=== PATIENT | male | born 1995 ===

== ENCOUNTER 2018-03-03 08:50 | Day surgery (SDC) | payer BC ==
[2018-02-27 10:01] VITALS: BMI 24.3
[2018-03-03 10:01] VITALS: RESP 18
--- NOTE | 2018-03-03 10:54 | CP.SDSHP ---
Same Day Surgery H & P - History Proposed Procedure: open right inguinal hernia repair with mesh Pre-Op Diagnosis: right inguinal hernia - Previous Medical/Surgical History Previous Surgical History: L patella surgery - Allergies Allergies: Allergies No Known Allergies Allergy (Verified 03/03/18 09:31) - Physical Exam General Appearance: NAD, well Vital Signs: Vital Signs 03/03/18 03/03/18 09:59 10:05 Temperature 98.1 F Pulse Rate 55 L 55 L Respiratory 18 Rate Blood Pressure 108/59 L O2 Sat by Pulse 99 Oximetry Mental Status: Alert & Oriented x3 Neuro: WNL Heart: WNL Lungs: WNL GI: WNL - {Optional Preform as Required} : Other (R inguinal hernia) - Impression Impression: 22 y/o M w/ inguinal hernia Pt. Evaluated Today:Candidate for Anesthesia & Procedure: Yes - Date & Time Date: 03/03/18 Time: 10:54 Short Stay Discharge - Short Stay Discharge Admitting Diagnosis/Reason for Visit: K40.9 Disposition: HOME/ ROUTINE Referrals: Greg Pacheco MD [Primary Care Provider] - Instructions: Hernia Repair (DC)
[2018-03-03] MEDS ORDERED: Propofol 10 mg/ml Inj (20 ML) ONE (11:17)
[2018-03-03] MEDS ORDERED: Rocuronium 10 mg/ml (5 ml) ONE (11:17)
[2018-03-03] MEDS ORDERED: Midazolam 2 MG/2 ML VIAL ONE (11:17)
[2018-03-03] MEDS ORDERED: Succinylcholine 200 mg/10 ml Inj IV ONE (11:18)
[2018-03-03] MEDS ORDERED: Lactated Ringer's 1,000 ML IV ONE ×2 (12:13→12:14)
[2018-03-03] MEDS ORDERED: Neostigmine 1:1000 (1 mg/ml) Inj ONE (13:06)
[2018-03-03] MEDS ORDERED: Oxycodone/Acetaminophen 5/325 mg Tab PO PRN ×2 (13:29)
--- NOTE | 2018-03-03 13:29 | PCM.SURG1 ---
Surgeon's Initial Post Op Note - Surgeon's Notes Surgeon: Dr. Luis Patient Access Registrar: Dr. Navas PGY4, Dr. Huynh PGY3 Type of Anesthesia: General Endo Pre-Operative Diagnosis: right inguinal hernia Operative Findings: see dictation Post-Operative Diagnosis: same Operation Performed: open right inguinal hernia repair with mesh Specimen/Specimens Removed: hernia sac, cord lipoma Estimated Blood Loss: EBL {In ML}: 10 Drains Used: No Drains Post-Op Condition: Good Date of Surgery/Procedure: 03/03/18 Time of Surgery/Procedure: 13:29
[2018-03-03] MEDS ORDERED: HYDROmorphone 0.5 mg/0.5 ml ISec IVP PRN (13:32)
[2018-03-03] MEDS ORDERED: Lactated Ringer's 1,000 ML IV SCH (13:45)
[2018-03-03 16:18] VITALS: O2SAT 100
[2018-03-03 17:32] VITALS: BP 120/70; PULSE 74; TEMP 98.1
--- NOTE | 2018-03-04 23:45 | OP ---
Copied To: Sumi Luis MD Attending MD: Sumi Luis MD PROCEDURE DATE: 03/03/2018 SURGEON: Sumi Luis MD SEISMOGRAPHER: Jacque Huynh DO, and Korina Navas DO. ANESTHESIA: General. ANESTHESIA ADMINISTERED BY: Dr. Baig. PREOPERATIVE DIAGNOSIS: Right inguinal hernia. POSTOPERATIVE DIAGNOSIS: Right inguinal hernia. PROCEDURE: Right inguinal hernia repair with mesh. DESCRIPTION OF OPERATION: With the patient in the supine position under adequate general anesthesia, the right groin was prepped and draped in the usual sterile manner. The area was noted to be soft, bulging in the right groin extending to the area of the pubic tubercle, and a transverse incision was made in the right upper groin crease, taken down through the subcutaneous tissue. The external oblique layer was identified, and fatty protrusion was noted through the external inguinal ring. The external oblique aponeurosis was incised and then opened from the internal inguinal ring to the external inguinal ring. The spermatic cord was identified and dissected as it passed over the pubic tubercle. The spermatic cord was fatty with no definite direct hernia identified beneath the spermatic cord. Dissection within the cremaster revealed a thin walled indirect hernia sac which was dissected back to the area of the internal inguinal ring. The sac was opened. There were no incarcerated contents, and the hernia sac was suture ligated with a 0 Vicryl suture and the sac was removed. In addition, there were two moderately-sized lipomas of the spermatic cord which were also dissected free off the underlying cord structures and suture ligated at the level of the internal ring and divided. The internal ring was mildly enlarged. In addition, there was definite weakness to the inguinal floor without gross herniation, and the shelving edge of the inguinal ligament and the transversalis fascia were identified and developed , a size medium ProLoop plug was positioned to invert the inguinal floor and sutured beneath the transversalis fascia superiorly and the shelving edge of the inguinal ligament inferiorly to maintain the reduction of the bulge in the inguinal floor. This was positioned with 2-0 Prolene sutures. In addition, the Prolene suture was placed close to the pubic tubercle to begin the approximation of the two levels of the repair and to allow careful positioning of the mesh. The flat mesh portion of the hernia system was then trimmed to approximate the inguinal floor and positioned beneath the spermatic cord. It was fixed to the area of the pubic tubercle using the previously placed sutures and positioned as well just medial to the internal inguinal ring with the previously placed sutures from the plug. Additional sutures were then taken from the mesh superiorly to the transversalis fascia and inferiorly to the shelving edge of the inguinal ligament using interrupted sutures of 2-0 Prolene. Additional suture was used to approximate the tails of the mesh lateral to the internal inguinal ring and fix it down to the transversalis fascia. When this had been completed, the external oblique was reapproximated over the spermatic cord and repaired using running suture of 0 Vicryl. Subcutaneous tissues were reapproximated with interrupted sutures of 3-0 Vicryl and closure was performed with 4-0 Monocryl subcuticular sutures and Dermabond. The patient tolerated the procedure well and transferred to the recovery room in stable condition. Estimated blood loss for the procedure was 10 mL. Sumi Luis MD
== END 2018-03-03 17:20 | disposition home or self-care (01) ==
LOC: H.OPSURG 08:50
PROVIDERS: ATTEND Specialist
DX: K40.90 Unilateral inguinal hernia, without obstruction or gangrene, not specified as recurrent (principal)
CPT/HCPCS: 49505; 88302; C1781; J0330; J0690; J1885; J2001; J2250; J2405; J2704; J2710; J3010; J7030; J7120